=== PATIENT | female | born 1985 ===

== ENCOUNTER 2023-11-17 12:38 | Outpatient (CLI) | payer BC, SELFPAY ==
--- NOTE | ~2023-11-17 | US_ITS ---
US soft tissue head and neck 11/17/2023 13:01 Indication: Neck mass Procedure: High-resolution Limited ultrasound of the left neck in the area of palpable concern Comparison: No prior studies for comparison. Findings: In the area of palpable concern there is a cyst measuring 1.5 x 0.3 x0.7 cm no other masses are identified. No solid abnormalities. No abnormal vascularity. Impression: 1: Elongated cyst measuring 1.5 x 0.3 x 0.7 cm corresponds to the area of palpable concern. Reviewed, dictated and finalized at location B. Impression: 1: Elongated cyst measuring 1.5 x 0.3 x 0.7 cm corresponds to the area of palpa ble concern.
== END 2023-11-17 12:39 ==
LOC: GOSHIMG 12:40
PROVIDERS: Visit Provider Internal Medicine
DX: R22.1 Localized swelling, mass and lump, neck (principal)
CPT/HCPCS: 76536